=== PATIENT | female | born 1990 | race Caucasian/White ===

== ENCOUNTER 2018-04-06 16:08 | Emergency (ER) | payer OTHER ==
[~2018-04-06] VITALS: Ht 170.2 cm; Wt 81.7 kg
[2018-04-06 17:35] LABS: BASOPHILS ABSOLUTE AUTO 0.06 K/mm3 (0.00-0.23); BASOPHILS PERCENT AUTO 0 % (0-2); EOSINOPHILS ABSOLUTE AUTO 0.02 K/mm3 (0.00-0.68); EOSINOPHILS PERCENT AUTO 0 % (0-6); Hemoglobin 13.7 g/dL (11.5-16.0); IMMATURE GRAN ABSOLUTE AUTO 0.25 K/mm3 (0.00-0.10); IMMATURE GRAN PERCENT AUTO 1 % (0-1); LYMPHOCYTES ABSOLUTE AUTO 1.19 K/mm3 (0.84-5.20); LYMPHOCYTES PERCENT AUTO 5 % (21-46); MONOCYTES PERCENT AUTO 6 % (4-13); Mean Corpuscular HGB 31.7 pg (26.0-34.0); Mean Corpuscular HGB Conc 32.6 g/dL (31.5-36.5); Mean Corpuscular Volume 97 fL (80-100); Mean Platelet Volume 11.5 fL (9.1-12.4); NEUTROPHILS ABSOLUTE AUTO 20.69 K/mm3 (1.96-9.15); NEUTROPHILS PERCENT AUTO 87 % (41-73); Platelet Count 247 K/mm3 (150-400); RDW Coefficient Variation 12.8 % (11.7-14.2); RDW Standard Deviation 45.7 fL (35.1-46.3); Red Blood Cell Count 4.32 M/mm3 (3.80-5.20); White Blood Cell Count 23.71 K/mm3 (4.00-11.30)
[2018-04-06 17:42] LABS: Alanine Aminotransfer (ALT/SGP 50 U/L (12-78); Albumin, Blood 3.8 g/dL (3.4-5.0); Alk Phos 96 U/L (50-136); Anion Gap 20 mmol/L (6-16); Aspartate Aminotrans (AST/SGOT 68 U/L (12-37); Bilirubin, Total 0.5 mg/dL (0.1-1.0); Blood Urea Nitrogen 20 mg/dL (8-24); Bun/Creatinine Ratio 18.9 (12.0-20.0); CO2, Blood 21 mmol/L (21-32); Calcium, Blood 8.3 mg/dL (8.5-10.1); Chloride, Blood 96 mmol/L (98-108); Creatinine, Blood 1.06 mg/dL (0.40-1.00); Globulin, Blood 3.9 g/dL (2.2-4.0); Glomerular Filtration Rate >60 (60-); Glucose, Blood 215 mg/dL (70-99); Potassium, Blood 3.5 mmol/L (3.5-5.5); Sodium, Blood 137 mmol/L (136-145); Total Protein, Blood 7.7 g/dL (6.4-8.2)
[2018-04-06 18:06] LABS: U Amphetamine Screen Not Detected; U Barbituate Screen Not Detected; U Benzodiazapine Screen Not Detected; U Buprenorphine Screen Not Detected; U Cannabinoids Screen Not Detected; U Cocaine Screen Not Detected; U Methadone Screen Not Detected; U Methamphetamine Screen DETECTED; U Opiates Screen DETECTED; U Oxycodone Screen Not Detected; U Phencyclidine Screen Not Detected; U Propoxyphene Screen Not Detected
== END 2018-04-06 19:55 | disposition home or self-care (01) ==
LOC: ER 16:08
PROVIDERS: Emergency Medicine
DX: T40.1X1A Poisoning by heroin, accidental (unintentional), initial encounter (principal); F17.210 Nicotine dependence, cigarettes, uncomplicated
CPT/HCPCS: 71046; 80053; 85025; 93005; 93010; 96374; 99285-25; J2310

== ENCOUNTER → 2018-07-09 | Outpatient (CLI) | payer OTHER ==
[2018-07-16 15:06] LABS: CHLAMYDIA BY NAA Negative (Negative); GONOCOCCUS BY NAA Negative (Negative); TRICH VAG BY NAA Negative (Negative)
== END | disposition home or self-care (01) ==
LOC: LAB SHORT 15:54 → LAB 15:54
PROVIDERS: Obstetrics & Gynecology
DX: Z36.89 Encounter for other specified antenatal screening (principal)
CPT/HCPCS: 87491; 87591; 87624; 87625; 87661; G0123

== ENCOUNTER → 2018-08-07 | Outpatient (CLI) | payer OTHER | END | disposition home or self-care (01) | LOC: LAB 16:13 → LAB SHORT 16:13 | DX: F11.11 Opioid abuse, in remission (principal) | CPT/HCPCS: G0480 ==

== ENCOUNTER → 2018-09-04 | Outpatient (CLI) | payer OTHER ==
[2018-09-04 18:00] LABS: U Amphetamine Screen Not Detected; U Barbituate Screen Not Detected; U Benzodiazapine Screen Not Detected; U Cannabinoids Screen Not Detected; U Cocaine Screen Not Detected; U Methadone Screen Not Detected; U Methamphetamine Screen Not Detected; U Opiates Screen Not Detected; U Phencyclidine Screen Not Detected
[2018-09-04 18:01] LABS: U Buprenorphine Screen Not Detected; U Oxycodone Screen Not Detected; U Propoxyphene Screen Not Detected
== END ==
LOC: LAB 16:40 → LAB SHORT 16:40
PROVIDERS: Obstetrics & Gynecology
DX: Z34.00 Encounter for supervision of normal first pregnancy, unspecified trimester (principal); Z86.59 Personal history of other mental and behavioral disorders

== ENCOUNTER → 2018-11-13 | Outpatient (CLI) | payer OTHER ==
[2018-11-14 09:36] LABS: Candida species (DNA Probe) Positive (NEGATIVE); G. vaginalis (DNA Probe) Negative (NEGATIVE); T. vaginalis (DNA Probe) Negative (NEGATIVE)
== END | disposition home or self-care (01) ==
LOC: LAB 11:00 → LAB SHORT 11:00
PROVIDERS: Obstetrics & Gynecology
DX: N76.0 Acute vaginitis (principal)
CPT/HCPCS: 87480; 87510; 87660

== ENCOUNTER → 2018-12-24 | Outpatient (CLI) | payer OTHER | END | disposition home or self-care (01) | LOC: LAB 14:16 → LAB SHORT 14:16 | DX: Z34.00 Encounter for supervision of normal first pregnancy, unspecified trimester (principal) | CPT/HCPCS: 87081; 87653 ==

== ENCOUNTER 2019-01-12 20:09 | Inpatient (IN) | payer OTHER ==
[~2019-01-12] VITALS: Ht 170.2 cm; Wt 96.4 kg
[2019-01-12] MEDS ORDERED: Verotin-Gr Cap1 EACH (20:58)
[2019-01-12] MEDS ORDERED: SUBOXONE 4 MG-1 EACH SL (20:59)
[2019-01-12 21:06] LABS: BASOPHILS ABSOLUTE AUTO 0.02 K/mm3 (0.00-0.23); BASOPHILS PERCENT AUTO 0 % (0-2); EOSINOPHILS ABSOLUTE AUTO 0.21 K/mm3 (0.00-0.68); EOSINOPHILS PERCENT AUTO 2 % (0-6); Hematocrit 37.1 % (33.0-51.0); Hemoglobin 12.6 g/dL (11.5-16.0); IMMATURE GRAN ABSOLUTE AUTO 0.03 K/mm3 (0.00-0.10); IMMATURE GRAN PERCENT AUTO 0 % (0-1); LYMPHOCYTES ABSOLUTE AUTO 1.68 K/mm3 (0.84-5.20); LYMPHOCYTES PERCENT AUTO 18 % (21-46); MONOCYTES ABSOLUTE AUTO 0.99 K/mm3 (0.16-1.47); MONOCYTES PERCENT AUTO 11 % (4-13); Mean Corpuscular HGB 31.6 pg (26.0-34.0); Mean Corpuscular Volume 93 fL (80-100); Mean Platelet Volume 12.9 fL (9.1-12.4); NEUTROPHILS ABSOLUTE AUTO 6.44 K/mm3 (1.96-9.15); NEUTROPHILS PERCENT AUTO 69 % (41-73); Platelet Count 191 K/mm3 (150-400); RDW Coefficient Variation 13.4 % (11.7-14.2); RDW Standard Deviation 45.9 fL (35.1-46.3); Red Blood Cell Count 3.99 M/mm3 (3.80-5.20); White Blood Cell Count 9.37 K/mm3 (4.00-11.30)
[2019-01-12 21:18] LABS: U Amphetamine Screen Not Detected; U Barbituate Screen Not Detected; U Benzodiazapine Screen Not Detected; U Cannabinoids Screen Not Detected; U Cocaine Screen Not Detected; U Methadone Screen Not Detected; U Methamphetamine Screen Not Detected; U Opiates Screen Not Detected; U Oxycodone Screen Not Detected; U Phencyclidine Screen Not Detected; U Propoxyphene Screen Not Detected
[2019-01-12 21:19] LABS: U Buprenorphine Screen DETECTED
--- NOTE | 2019-01-13 18:40 | NUR ---
REPORT TO ONCOMING SHIFT
--- NOTE | 2019-01-14 12:47 | NUR ---
BRESTFEEDING ASSIST MOM REPORTS THAT BREASTFEEDIGN IS GOING WELL. BABY WIHT WIDE ASYMETRIC LATCH. NEW BEGINNINGS AND BOOK DISCUSSED. MOM HANDLES BABY VERY WELL.
[2019-01-14 13:24] LABS: Hemoglobin 11.9 g/dL (11.5-16.0); Mean Corpuscular HGB 31.6 pg (26.0-34.0); Mean Corpuscular Volume 93 fL (80-100); Mean Platelet Volume 12.9 fL (9.1-12.4); Platelet Count 156 K/mm3 (150-400); RDW Coefficient Variation 13.7 % (11.7-14.2); RDW Standard Deviation 46.4 fL (35.1-46.3); Red Blood Cell Count 3.77 M/mm3 (3.80-5.20); White Blood Cell Count 14.72 K/mm3 (4.00-11.30)
--- NOTE | 2019-01-14 22:24 | NUR ---
ASSUMED CARE FROM URI RIZVI AT 1535
[2019-01-15] MEDS ORDERED: IBUP800 PO (14:08)
--- NOTE | 2019-01-15 16:08 | NUR ---
SUBUTEX RETURNED TO PT FROM PHARMACY. VERIFITED WITH THE PATIENT, OSCAR GREWAL, AND MYSELF THAT THERE WERE 2.5 PILLS IN THE BOTTLE. ALL WITNESSES AGREED ON THE AMOUNT PRESENT.
--- NOTE | 2019-01-15 16:38 | NUR ---
PT PUT TO BOARDER. PT EDUCATED ON WHAT BOARDER STATUS AND REPORTED THAT SHE UNDERSTOOD. PRESCRIPTION CALLED IN TO [facility] FOR MOLD YARN SUPERVISOR. PT GIVEN MATERNAL DISCHARGE INSTRICTIONS. NO QUESTIONS OR CONCERNS AT THIS TIME.
== END 2019-01-15 16:38 | disposition home or self-care (01) | DRG 806 ==
LOC: BC 20:09
PROVIDERS: ADMIT Obstetrics & Gynecology
PROC: 3E0P7VZ Introduction of Hormone into Female Reproductive, Via Natural or Artificial Opening (ICD-10-PCS; 2019-01-12)
PROC: 10907ZC Drainage of Amniotic Fluid, Therapeutic from Products of Conception, Via Natural or Artificial Opening (ICD-10-PCS; 2019-01-13)
PROC: 10H07YZ Insertion of Other Device into Products of Conception, Via Natural or Artificial Opening (ICD-10-PCS; 2019-01-13)
PROC: 3E0R3BZ Introduction of Anesthetic Agent into Spinal Canal, Percutaneous Approach (ICD-10-PCS; 2019-01-13)
PROC: 10E0XZZ Delivery of Products of Conception, External Approach (ICD-10-PCS; principal; 2019-01-14)
PROC: 0UQG7ZZ Repair Vagina, Via Natural or Artificial Opening (ICD-10-PCS; 2019-01-14)
DX: O99.824 Streptococcus B carrier state complicating childbirth (principal); F11.20 Opioid dependence, uncomplicated; Z37.0 Single live birth; O99.324 Drug use complicating childbirth; Z3A.39 39 weeks gestation of pregnancy; O71.4 Obstetric high vaginal laceration alone
CPT/HCPCS: 36415; 51702; 85025; 85027; J0290; J1885; J2590; J3010; J7120

== ENCOUNTER 2019-03-09 15:12 | Emergency (ER) | payer OTHER ==
[~2019-03-09] VITALS: Ht 170.2 cm; Wt 83.9 kg
[~2019-03-09 15:12] MED LIST: IBUP800 PO; SUBOXONE 4 MG-1 EACH SL; Verotin-Gr Cap1 EACH
[2019-03-09 15:46] LABS: BASOPHILS ABSOLUTE AUTO 0.04 K/mm3 (0.00-0.23); BASOPHILS PERCENT AUTO 0 % (0-2); EOSINOPHILS PERCENT AUTO 2 % (0-6); Hematocrit 47.7 % (33.0-51.0); Hemoglobin 16.2 g/dL (11.5-16.0); IMMATURE GRAN ABSOLUTE AUTO 0.04 K/mm3 (0.00-0.10); IMMATURE GRAN PERCENT AUTO 0 % (0-1); LYMPHOCYTES ABSOLUTE AUTO 0.93 K/mm3 (0.84-5.20); LYMPHOCYTES PERCENT AUTO 10 % (21-46); MONOCYTES ABSOLUTE AUTO 0.43 K/mm3 (0.16-1.47); MONOCYTES PERCENT AUTO 5 % (4-13); Mean Corpuscular HGB 31.2 pg (26.0-34.0); Mean Corpuscular Volume 92 fL (80-100); Mean Platelet Volume 11.5 fL (9.1-12.4); NEUTROPHILS ABSOLUTE AUTO 7.48 K/mm3 (1.96-9.15); NEUTROPHILS PERCENT AUTO 82 % (41-73); Platelet Count 215 K/mm3 (150-400); RDW Coefficient Variation 13.4 % (11.7-14.2); RDW Standard Deviation 45.5 fL (35.1-46.3); White Blood Cell Count 9.12 K/mm3 (4.00-11.30)
[2019-03-09 16:03] LABS: Alanine Aminotransfer (ALT/SGP 42 U/L (12-78); Albumin, Blood 4.2 g/dL (3.4-5.0); Alk Phos 119 U/L (50-136); Anion Gap 9 mmol/L (6-16); Aspartate Aminotrans (AST/SGOT 21 U/L (12-37); Bilirubin, Total 0.6 mg/dL (0.1-1.0); Blood Urea Nitrogen 16 mg/dL (8-24); Bun/Creatinine Ratio 25.8 (12.0-20.0); CO2, Blood 23 mmol/L (21-32); Calcium, Blood 9.8 mg/dL (8.5-10.1); Chloride, Blood 110 mmol/L (98-108); Creatinine, Blood 0.62 mg/dL (0.40-1.00); Glomerular Filtration Rate >60 (60-); Glucose, Blood 93 mg/dL (70-99); Sodium, Blood 142 mmol/L (136-145); Total Protein, Blood 8.2 g/dL (6.4-8.2)
[2019-03-09 18:30] LABS: Source, Urine Clean Catch
[2019-03-09 18:35] LABS: Bilirubin, Urine Neg (Neg); Blood, Urine Neg (Neg); Glucose Qualitative, Urine Neg (Neg); Ketones, Urine Neg (Neg); Leukocyte Esterase, Urine 1+ (Neg); Nitrite, Urine Neg (Neg); Protein, Urine Neg (Neg); Urobilinogen, Urine NORM (Normal)
[2019-03-09 18:45] LABS: Appearance, Urine Hazy (Clear); Color, Urine Yellow (P-Yellow)
[2019-03-09 18:46] LABS: Red Blood Cells, Urine 0-2 /hpf (0-2)
[2019-03-09 18:47] LABS: Bacteria Mod /hpf; Mucus Light (0-Heavy); Squamous Epithelial Cells Mod /hpf (Few)
== END 2019-03-09 21:20 | disposition home or self-care (01) ==
LOC: ER 15:12
PROVIDERS: Physician Assistant
DX: R10.11 Right upper quadrant pain (principal); R19.7 Diarrhea, unspecified; Z91.030 Bee allergy status; F17.210 Nicotine dependence, cigarettes, uncomplicated
CPT/HCPCS: 74177; 76705; 80053; 81001; 81025; 83690; 85025; 87086; 96360-59; 99284-25; J7030; Q9967

== ENCOUNTER 2019-06-07 03:16 | Observation (INO) | payer OTHER ==
[~2019-06-07] VITALS: Ht 170.2 cm; Wt 87.9 kg
[2019-06-07 03:36] LABS: BASOPHILS ABSOLUTE AUTO 0.05 K/mm3 (0.00-0.23); BASOPHILS PERCENT AUTO 1 % (0-2); EOSINOPHILS ABSOLUTE AUTO 0.39 K/mm3 (0.00-0.68); EOSINOPHILS PERCENT AUTO 4 % (0-6); Hematocrit 43.2 % (33.0-51.0); Hemoglobin 14.2 g/dL (11.5-16.0); IMMATURE GRAN ABSOLUTE AUTO 0.05 K/mm3 (0.00-0.10); IMMATURE GRAN PERCENT AUTO 1 % (0-1); LYMPHOCYTES ABSOLUTE AUTO 4.34 K/mm3 (0.84-5.20); LYMPHOCYTES PERCENT AUTO 46 % (21-46); MONOCYTES ABSOLUTE AUTO 0.65 K/mm3 (0.16-1.47); MONOCYTES PERCENT AUTO 7 % (4-13); Mean Corpuscular HGB 32.1 pg (26.0-34.0); Mean Corpuscular HGB Conc 32.9 g/dL (31.5-36.5); Mean Corpuscular Volume 98 fL (80-100); Mean Platelet Volume 10.5 fL (9.1-12.4); NEUTROPHILS ABSOLUTE AUTO 3.94 K/mm3 (1.96-9.15); NEUTROPHILS PERCENT AUTO 42 % (41-73); Platelet Count 258 K/mm3 (150-400); RDW Coefficient Variation 14.5 % (11.7-14.2); RDW Standard Deviation 52.8 fL (35.1-46.3); Red Blood Cell Count 4.43 M/mm3 (3.80-5.20); White Blood Cell Count 9.42 K/mm3 (4.00-11.30)
[2019-06-07 04:00] LABS: Alanine Aminotransfer (ALT/SGP 19 U/L (12-78); Albumin, Blood 4.1 g/dL (3.4-5.0); Albumin/Globulin Ratio 1.3 (0.8-1.8); Alk Phos 96 U/L (50-136); Anion Gap 9 mmol/L (6-16); Aspartate Aminotrans (AST/SGOT 16 U/L (12-37); Bilirubin, Total 0.1 mg/dL (0.1-1.0); Blood Urea Nitrogen 14 mg/dL (8-24); Bun/Creatinine Ratio 22.5 (12.0-20.0); CO2, Blood 24 mmol/L (21-32); Calcium, Blood 8.1 mg/dL (8.5-10.1); Chloride, Blood 112 mmol/L (98-108); Creatinine, Blood 0.62 mg/dL (0.40-1.00); Ethanol (Alcohol), Blood, Med 168 mg/dL; Globulin, Blood 3.1 g/dL (2.2-4.0); Glomerular Filtration Rate >60 (60-); Glucose, Blood 98 mg/dL (70-99); Potassium, Blood 4.3 mmol/L (3.5-5.5); Salicylate 2.3 mg/dL (2.8-20.0); Sodium, Blood 145 mmol/L (136-145); Total Protein, Blood 7.2 g/dL (6.4-8.2)
[2019-06-07 04:03] LABS: Acetaminophen, Random 185.8 ug/mL (10.0-30.0)
[2019-06-07 06:02] LABS: Source, Urine Clean Catch
[2019-06-07 06:04] LABS: Bilirubin, Urine Neg (Neg); Blood, Urine Neg (Neg); Glucose Qualitative, Urine Neg (Neg); Ketones, Urine Neg (Neg); Leukocyte Esterase, Urine 1+ (Neg); Nitrite, Urine Neg (Neg); Protein, Urine Neg (Neg); Urobilinogen, Urine NORM (Normal)
[2019-06-07 06:11] LABS: Appearance, Urine Clear (Clear); Color, Urine Yellow (P-Yellow)
[2019-06-07 06:13] LABS: Bacteria Few /hpf; Red Blood Cells, Urine 0-2 /hpf (0-2); Squamous Epithelial Cells Many /hpf (Few)
[2019-06-07 06:22] LABS: U Amphetamine Screen Not Detected; U Barbituate Screen Not Detected; U Benzodiazapine Screen Not Detected; U Buprenorphine Screen Not Detected; U Cannabinoids Screen Not Detected; U Cocaine Screen Not Detected; U Methadone Screen Not Detected; U Methamphetamine Screen Not Detected; U Opiates Screen Not Detected; U Oxycodone Screen Not Detected; U Phencyclidine Screen Not Detected; U Propoxyphene Screen Not Detected
[2019-06-07 10:10] LABS: Alanine Aminotransfer (ALT/SGP 27 U/L (12-78); Albumin, Blood 3.4 g/dL (3.4-5.0); Albumin/Globulin Ratio 1.1 (0.8-1.8); Alk Phos 71 U/L (50-136); Anion Gap 12 mmol/L (6-16); Aspartate Aminotrans (AST/SGOT 11 U/L (12-37); Bilirubin, Total 0.2 mg/dL (0.1-1.0); Blood Urea Nitrogen 13 mg/dL (8-24); Bun/Creatinine Ratio 24.7 (12.0-20.0); CO2, Blood 22 mmol/L (21-32); Calcium, Blood 7.8 mg/dL (8.5-10.1); Chloride, Blood 111 mmol/L (98-108); Creatinine, Blood 0.53 mg/dL (0.40-1.00); Globulin, Blood 3.1 g/dL (2.2-4.0); Glomerular Filtration Rate >60 (60-); Glucose, Blood 126 mg/dL (70-99); Potassium, Blood 3.6 mmol/L (3.5-5.5); Sodium, Blood 145 mmol/L (136-145); Total Protein, Blood 6.5 g/dL (6.4-8.2)
[2019-06-07 16:13] LABS: Alanine Aminotransfer (ALT/SGP 24 U/L (12-78); Albumin, Blood 3.4 g/dL (3.4-5.0); Albumin/Globulin Ratio 1.1 (0.8-1.8); Alk Phos 70 U/L (50-136); Anion Gap 11 mmol/L (6-16); Aspartate Aminotrans (AST/SGOT 10 U/L (12-37); Bilirubin, Total 0.2 mg/dL (0.1-1.0); Blood Urea Nitrogen 13 mg/dL (8-24); Bun/Creatinine Ratio 19.5 (12.0-20.0); CO2, Blood 22 mmol/L (21-32); Calcium, Blood 7.6 mg/dL (8.5-10.1); Chloride, Blood 111 mmol/L (98-108); Creatinine, Blood 0.67 mg/dL (0.40-1.00); Globulin, Blood 3.2 g/dL (2.2-4.0); Glomerular Filtration Rate >60 (60-); Glucose, Blood 99 mg/dL (70-99); Potassium, Blood 3.5 mmol/L (3.5-5.5); Sodium, Blood 144 mmol/L (136-145); Total Protein, Blood 6.6 g/dL (6.4-8.2)
--- NOTE | 2019-06-07 16:46 | NUR ---
UPDATE SPOKE WITH CONSULTING PSYCHATRIST ABOUT HOLD. PT STILL REQUIRING 2 MD HOLD. PT CHANGED TO MODERATE RISK AND NO LONGER REQUIRES SITTER IN THE ROOM, CAMERA MONITORING IS SUFFICIENT. DR. JONES AWARE. WILL CONTINUE TO MONITOR CLOSELY.
--- NOTE | 2019-06-07 17:35 | NUR ---
SHIFT SUMMARY PT ALERT AND ORIENTED. VS STABLE. HR NSR. PT WAS NAUSEOUS AND VOMITING THIS AM, BUT HAS NOT SINCE NOON. NAC INFUSING PER ORDERS. NO SIGNS OR SYMPTOMS OF BLEEDING NOTED. PT DENIES ANY PAIN. SUICIDE PRECAUTIONS IN PLACE. PT BEING MONITORED WITH CAMERA IN ROOM. WILL CONTINUE TO MONITOR AND REPORT TO ONCOMING RN. CALL LIGHT IN REACH.
[2019-06-07 21:58] LABS: Alanine Aminotransfer (ALT/SGP 20 U/L (12-78); Albumin, Blood 3.1 g/dL (3.4-5.0); Alk Phos 64 U/L (50-136); Anion Gap 8 mmol/L (6-16); Aspartate Aminotrans (AST/SGOT 14 U/L (12-37); Bilirubin, Total 0.4 mg/dL (0.1-1.0); Blood Urea Nitrogen 12 mg/dL (8-24); Bun/Creatinine Ratio 18.5 (12.0-20.0); CO2, Blood 24 mmol/L (21-32); Calcium, Blood 7.7 mg/dL (8.5-10.1); Chloride, Blood 112 mmol/L (98-108); Creatinine, Blood 0.65 mg/dL (0.40-1.00); Glomerular Filtration Rate >60 (60-); Glucose, Blood 99 mg/dL (70-99); Potassium, Blood 3.3 mmol/L (3.5-5.5); Sodium, Blood 144 mmol/L (136-145); Total Protein, Blood 6.1 g/dL (6.4-8.2)
--- NOTE | 2019-06-08 03:49 | NUR ---
poison control called for lab results, acetaminnophen was 3.5, along with other labs they said to stop the acetyleyseine when the bag was empty, wrote orders to dc along those lines and implemented them, pt is resting quietly and appreciated the removeal of the IV lines to make trips to bathroom less cumbersom/complicated, will continue to monitor and treat
[2019-06-08 03:57] LABS: BASOPHILS ABSOLUTE AUTO 0.04 K/mm3 (0.00-0.23); BASOPHILS PERCENT AUTO 0 % (0-2); EOSINOPHILS ABSOLUTE AUTO 0.11 K/mm3 (0.00-0.68); EOSINOPHILS PERCENT AUTO 1 % (0-6); Hematocrit 37.9 % (33.0-51.0); Hemoglobin 12.4 g/dL (11.5-16.0); IMMATURE GRAN ABSOLUTE AUTO 0.03 K/mm3 (0.00-0.10); IMMATURE GRAN PERCENT AUTO 0 % (0-1); LYMPHOCYTES ABSOLUTE AUTO 2.71 K/mm3 (0.84-5.20); LYMPHOCYTES PERCENT AUTO 25 % (21-46); MONOCYTES PERCENT AUTO 7 % (4-13); Mean Corpuscular HGB 32.3 pg (26.0-34.0); Mean Corpuscular HGB Conc 32.7 g/dL (31.5-36.5); Mean Corpuscular Volume 99 fL (80-100); Mean Platelet Volume 10.9 fL (9.1-12.4); NEUTROPHILS ABSOLUTE AUTO 7.14 K/mm3 (1.96-9.15); NEUTROPHILS PERCENT AUTO 66 % (41-73); Platelet Count 205 K/mm3 (150-400); RDW Coefficient Variation 14.6 % (11.7-14.2); RDW Standard Deviation 53.3 fL (35.1-46.3); Red Blood Cell Count 3.84 M/mm3 (3.80-5.20); White Blood Cell Count 10.83 K/mm3 (4.00-11.30)
[2019-06-08 04:20] LABS: Alanine Aminotransfer (ALT/SGP 21 U/L (12-78); Albumin/Globulin Ratio 1.1 (0.8-1.8); Alk Phos 61 U/L (50-136); Anion Gap 7 mmol/L (6-16); Aspartate Aminotrans (AST/SGOT 14 U/L (12-37); Bilirubin, Total 0.6 mg/dL (0.1-1.0); Blood Urea Nitrogen 9 mg/dL (8-24); Bun/Creatinine Ratio 15.7 (12.0-20.0); CO2, Blood 23 mmol/L (21-32); Calcium, Blood 7.8 mg/dL (8.5-10.1); Chloride, Blood 111 mmol/L (98-108); Creatinine, Blood 0.57 mg/dL (0.40-1.00); Globulin, Blood 2.8 g/dL (2.2-4.0); Glomerular Filtration Rate >60 (60-); Glucose, Blood 94 mg/dL (70-99); Potassium, Blood 3.2 mmol/L (3.5-5.5); Sodium, Blood 141 mmol/L (136-145); Total Protein, Blood 5.8 g/dL (6.4-8.2)
--- NOTE | 2019-06-08 07:15 | NUR ---
denies suicide ideation, indpedent in rm as far as stability but sba within arms length due to suicide, rm air, saline locked, cleared by poison control as far as need for drip, bs report shared with staff and pt during monring rounds
--- NOTE | 2019-06-08 08:30 | NUR ---
INITIAL ASSSESSMENT PT WAS FOUND TO BE BED EATING BREAKFAST. UPON ASSESSMENT, PT DENIES ANY SI AND STATES, "I HAVEN'T HAD ANY I WAS SLEEPING". PT'S ROOM CHECKED FOR ANY ADDITIONAL ITEMS THAT WERE NO LONGER IN USE AND COULD BE REMOVED. VITALS STABLE.
--- NOTE | 2019-06-08 15:45 | NUR ---
TRANSFER OF CARE REPORT GIVEN TO TYRON GREWAL ON MEDICAL FLOOR. UPDATED RN ON PT'S STATUS FOR SEARCH FOR INPATIENT PYSCH CARE. NO FAMILY HAS SHOWN UP TODAY. BELONGINGS GATHERED OUT OF LOCKED CLOSET AND SENT WITH TECH TO PT'S NEW ROOM. PT WAS ESCORTED BY JUANPABLO BENJAMIN VIA W/C TO ROOM 345. CENTRAL MONITORING NOTIFIED OF PT TRANSER.
--- NOTE | 2019-06-08 16:53 | NUR ---
1613 PT ARRIVED TO MEDICAL FLOOR FROM PCU. CAMERA VERIFIED TO BE ON. ROOM SAFETY CHECK COMPLETED, UNNESSARY AND POTENTIALLY DANGEROUS ITEMS REOMVED PER POLICY, SEE PAPER DOCUMENTATION. VSS PT WITH FLAT AFFECT. PT DENIES NEEDS.
--- NOTE | 2019-06-08 18:12 | NUR ---
SHIFT SUMMARY. PT A&OX4, PLEASANT AND COOPERATIVE, FLAT AFFECT. GRANDMOTHER, IRINA ZAMARRIPA IN TO VISIT THIS EVENING, ANGELINE VALLADARES NP NOTIFIED AND SHE REPORTED THAT SHE WILL CALL THE IRINA IN THE MORNING. CN NOTIFIED THIS RN THAT JANETT GUTIERREZ HAS ACCEPTED THE PT AND WE ARE WAITING ON A BED. NO NEW CHANGES OR CONCERNS.
--- NOTE | 2019-06-08 20:31 | NUR ---
PT CURRENTLY LAYING IN BED AND WATCHING TV. DENIES PAIN OTHER THAN PAIN IN THROAT FROM THROWING UP PREVIOUSLY. WILL CONTINUE TO MONITOR.
--- NOTE | 2019-06-08 22:43 | NUR ---
PT COMPLAINED OF HEADACHE 01/28. PT STATES SHE IS DAILY SMOKER, SMOKES 1 AND A PACK A DAY AND HAS NOT SMOKED SINCE SHE GOT ON THE FLOOR. PT ALSO STATES SHE IS A DAILY CAFFINE DRINKER AND HAS NOT HAD CAFFINE SINCE ON THE FLOOR. CAFFINE HAS BEEN OFFERED TO PT. HOSPITALIST DR. LONDON SAMUEL NOTIFIED AND NICOTINE PATCH 21 MG ORDERED. PT STATED SHE WILL TRY NICOTINE PATCH.
--- NOTE | 2019-06-09 02:52 | NUR ---
PT STATED IV IN RIGHT ARM ITCHY. NO REDNESS NOTED. PT ALSO HAS ANOTHER IV IN LEFT ARM, FLUSHES NICELY WITH NO DISCOMFORT OR REDNESS. PT MADE AWARE THAT ONE OF THE IVS NEEDS TO STAY IN IN CASE OF EMERGENCIES.
--- NOTE | 2019-06-09 04:15 | NUR ---
MANAGER VIDEO GAMES SUMMARY PT A/O X4. NO ACUTE CHANGES THIS SHIFT. FLAT AFFECT. PT STATED SHE HAS SLEPT ALL DAY FOR THE PAST 2 DAYS, WASN'T TIRED AND DID NOT SLEEP MUCH TONIGHT. HEADACHE RE-ASSESSED AFTER NICOTINE PATCH APPLIED TO LEFT UPPER ARM. PT STATED PAIN HAS COME DOWN. WILL CONTINUE TO MONITOR.
[2019-06-09 05:21] LABS: Anion Gap 6 mmol/L (6-16); Blood Urea Nitrogen 9 mg/dL (8-24); Bun/Creatinine Ratio 16.8 (12.0-20.0); CO2, Blood 26 mmol/L (21-32); Calcium, Blood 8.3 mg/dL (8.5-10.1); Chloride, Blood 110 mmol/L (98-108); Creatinine, Blood 0.54 mg/dL (0.40-1.00); Glomerular Filtration Rate >60 (60-); Glucose, Blood 86 mg/dL (70-99); Potassium, Blood 3.6 mmol/L (3.5-5.5); Sodium, Blood 142 mmol/L (136-145)
--- NOTE | 2019-06-09 08:20 | NUR ---
PATIENT DID NOT EAT BREAKFAST THIS SHIFT. SHE STATED SHE DID NOT WANT IT. SHE STATED SHE WAS UP UNTIL 0500 AND WANTED TO SLEEP. I OFFERED TO LEAVE THE THE TRAY AND SHE DECLINED. TRAY WAS REMOVED AND RN WAS NOTIFIED.
--- NOTE | 2019-06-09 12:20 | NUR ---
PATIENT DID NOT EAT LUNCH THIS SHIFT. FAMILY PRESENT AND VISITNG. TRAY REMOVED.
--- NOTE | 2019-06-09 14:01 | NUR ---
COBRA TRANSFER PATIENT TRANSFERED TO [facility] VIA SECURE TRANSPORT. REPORT CALLED TO SHITAL AT [facility]. PATIENT'S BOYFRIEND AND GRANDMOTHER AWARE OF TRANSFER AND VISTED PATIENT BEFORE TRANSFER.
== END 2019-06-09 14:00 | disposition short-term general hospital (02) ==
LOC: ER 03:16 → EOR 03:17 → PCU 03:17 → EOR 03:17 → PCU 06:18 → MEDS 06-08 16:13 → ENPENDDIS 06-09 11:09 → MEDS 06-09 14:00
PROVIDERS: Hospitalist; ADMIT Emergency Medicine
DX: T39.312A Poisoning by propionic acid derivatives, intentional self-harm, initial encounter (principal); T39.1X2A Poisoning by 4-Aminophenol derivatives, intentional self-harm, initial encounter; F33.2 Major depressive disorder, recurrent severe without psychotic features; E87.6 Hypokalemia; F41.9 Anxiety disorder, unspecified; F11.20 Opioid dependence, uncomplicated; F10.129 Alcohol abuse with intoxication, unspecified; F17.210 Nicotine dependence, cigarettes, uncomplicated; Z91.038 Other insect allergy status; Z79.899 Other long term (current) drug therapy; Y90.6 Blood alcohol level of 120-199 mg/100 ml
CPT/HCPCS: 36415; 80048; 80053; 81001; 81025; 85025; 86850; 86900; 86901; 87086; 93005; 93010; 96361; 96365; 96366; 96375; 96376; 99285-25; G0378; G0480; J0132; J2405; J2550; J7030; J7060; J7070; J7120; Q0177

== ENCOUNTER → 2022-11-05 | Outpatient (CLI) | payer OTHER | END | disposition home or self-care (01) | LOC: LAB 11:27 → LAB SHORT 11:27 | DX: N10 Acute pyelonephritis (principal) | CPT/HCPCS: 87077; 87086; 87186 ==

== ENCOUNTER 2023-04-04 09:28 | Emergency (ER) | payer OTHER ==
[~2023-04-04] VITALS: Ht 167.6 cm; Wt 74.8 kg
[2023-04-04 09:53] VITALS: BP 135/87
[2023-04-04 10:09] LABS: Source, Urine Clean Catch
[2023-04-04 10:16] LABS: Appearance, Urine Cloudy (Clear); Bilirubin, Urine Neg (Neg); Blood, Urine 1+ (Neg); Color, Urine Yellow (P-Yellow); Glucose Qualitative, Urine Neg (Neg); Ketones, Urine Neg (Neg); Leukocyte Esterase, Urine 3+ (Neg); Nitrite, Urine Neg (Neg); Protein, Urine 2+ (Neg); Urobilinogen, Urine 1+ (Normal)
[2023-04-04 10:27] LABS: White Blood Cells, Urine 50-100 /hpf (0-5)
[2023-04-04 10:30] LABS: Bacteria Many /hpf; Squamous Epithelial Cells Many /hpf (Few)
[2023-04-04 10:32] LABS: Mucus Mod (0-Heavy)
== END 2023-04-04 11:23 | disposition home or self-care (01) ==
LOC: ER 09:28
PROVIDERS: Physician Assistant
DX: O20.0 Threatened abortion (principal); O99.331 Smoking (tobacco) complicating pregnancy, first trimester; F17.210 Nicotine dependence, cigarettes, uncomplicated; Z3A.01 Less than 8 weeks gestation of pregnancy
CPT/HCPCS: 36415; 76801; 76817; 81001; 84702; 87077; 87086; 87186; 99284-25

== ENCOUNTER → 2023-05-09 | Outpatient (CLI) | payer OTHER ==
[2023-05-13 14:09] LABS: HPV 16 Negative (Negative); HPV 18 Negative (Negative); HPV OTHER HR TYPES Positive (Negative)
== END | disposition home or self-care (01) ==
LOC: LAB 13:17 → LAB SHORT 13:17
PROVIDERS: Obstetrics & Gynecology
DX: Z01.419 Encounter for gynecological examination (general) (routine) without abnormal findings (principal)
CPT/HCPCS: 87624; G0145

== ENCOUNTER → 2023-06-05 | Outpatient (CLI) | payer OTHER ==
[2023-06-05 15:11] LABS: Source, Urine Clean Catch
[2023-06-05 17:00] LABS: Appearance, Urine Cloudy (Clear); Bilirubin, Urine Neg (Neg); Blood, Urine Neg (Neg); Glucose Qualitative, Urine Neg (Neg); Ketones, Urine Neg (Neg); Leukocyte Esterase, Urine 2+ (Neg); Nitrite, Urine Neg (Neg); Protein, Urine Neg (Neg); Urobilinogen, Urine NORM (Normal)
[2023-06-05 17:13] LABS: Color, Urine Pale Yellow (P-Yellow)
[2023-06-05 17:15] LABS: Amorphous Light (0-Heavy); Bacteria Many /hpf; Red Blood Cells, Urine Not Seen /hpf (0-2); Squamous Epithelial Cells Many /hpf (Few)
== END ==
LOC: LAB 15:08 → LAB SHORT 15:08
PROVIDERS: Obstetrics & Gynecology
DX: N39.0 Urinary tract infection, site not specified (principal)
CPT/HCPCS: 81001; 87077; 87086; 87186

== ENCOUNTER 2023-06-10 12:58 | Emergency (ER) | payer OTHER ==
[~2023-06-10] VITALS: Ht 167.6 cm; Wt 86.2 kg
[2023-06-10 14:19] LABS: Source, Urine Clean Catch
[2023-06-10 14:21] LABS: Appearance, Urine Cloudy (Clear); Bilirubin, Urine Neg (Neg); Blood, Urine 5+ (Neg); Color, Urine Yellow (P-Yellow); Glucose Qualitative, Urine Neg (Neg); Ketones, Urine Neg (Neg); Leukocyte Esterase, Urine 2+ (Neg); Nitrite, Urine Neg (Neg); Protein, Urine Neg (Neg); Urobilinogen, Urine NORM (Normal)
[2023-06-10 14:22] LABS: BASOPHILS ABSOLUTE AUTO 0.02 K/mm3 (0.00-0.23); BASOPHILS PERCENT AUTO 0 % (0-2); EOSINOPHILS ABSOLUTE AUTO 0.13 K/mm3 (0.00-0.68); EOSINOPHILS PERCENT AUTO 2 % (0-6); Hematocrit 37.9 % (33.0-51.0); Hemoglobin 13.2 g/dL (11.5-16.0); IMMATURE GRAN ABSOLUTE AUTO 0.02 K/mm3 (0.00-0.10); IMMATURE GRAN PERCENT AUTO 0 % (0-1); LYMPHOCYTES ABSOLUTE AUTO 2.13 K/mm3 (0.84-5.20); LYMPHOCYTES PERCENT AUTO 27 % (21-46); MONOCYTES ABSOLUTE AUTO 0.49 K/mm3 (0.16-1.47); MONOCYTES PERCENT AUTO 6 % (4-13); Mean Corpuscular HGB 31.9 pg (26.0-34.0); Mean Corpuscular HGB Conc 34.8 g/dL (31.5-36.5); Mean Corpuscular Volume 92 fL (80-100); Mean Platelet Volume 11.4 fL (9.1-12.4); NEUTROPHILS ABSOLUTE AUTO 5.08 K/mm3 (1.96-9.15); NEUTROPHILS PERCENT AUTO 64 % (41-73); Platelet Count 195 K/mm3 (150-400); RDW Coefficient Variation 12.4 % (11.7-14.2); RDW Standard Deviation 41.4 fL (35.1-46.3); Red Blood Cell Count 4.14 M/mm3 (3.80-5.20); White Blood Cell Count 7.87 K/mm3 (4.00-11.30)
[2023-06-10 14:32] LABS: Red Blood Cells, Urine 50-100 /hpf (0-2); Squamous Epithelial Cells Many /hpf (Few)
[2023-06-10 14:33] LABS: Bacteria Mod /hpf; Transitional Epithelial Cells Rare /hpf (0-Rare)
[2023-06-10 15:23] LABS: Albumin, Blood 2.9 g/dL (3.4-5.0); Albumin/Globulin Ratio 0.7 (0.8-1.8); Bilirubin, Total 0.1 mg/dL (0.1-1.0); Bun/Creatinine Ratio 11.2 (12.0-20.0); Calcium, Blood 8.6 mg/dL (8.5-10.1); Creatinine, Blood 0.72 mg/dL (0.40-1.00); Globulin, Blood 4.3 g/dL (2.2-4.0); Potassium, Blood 3.9 mmol/L (3.5-5.5); Total Protein, Blood 7.2 g/dL (6.4-8.2)
[2023-06-10 16:02] VITALS: BP 125/78
== END 2023-06-10 16:03 | disposition home or self-care (01) ==
LOC: ER 12:58
PROVIDERS: Student in an Organized Health Care Education/Training Program
DX: O20.9 Hemorrhage in early pregnancy, unspecified (principal); O99.332 Smoking (tobacco) complicating pregnancy, second trimester; F17.210 Nicotine dependence, cigarettes, uncomplicated; Z3A.15 15 weeks gestation of pregnancy; Z91.030 Bee allergy status
CPT/HCPCS: 76815; 76817; 80053; 81001; 84702; 85025; 86900; 86901; 87086; 99284-25

== ENCOUNTER 2023-11-13 16:32 | Inpatient (IN) | payer OTHER ==
[~2023-11-13] VITALS: Ht 167.6 cm; Wt 88.1 kg
[2023-11-13] VITALS (30 sets, daily range): BP systolic 116–166; BP diastolic 71–103
--- NOTE | 2023-11-13 17:44 | NUR ---
PATIENT IN BY AMBULANCE AT 1632 FOR BLEEDING, SCANT BLEEDING ON LEGS, PATIENT ANXIOUS AND IRRITABLE STATES HAS NOT HAD CARE SINCE MAY, STATES SHE HAS HYSTORY OF USING METH AND FENTANYL, STATES SHE HAS ONLY BEEN USING METHADONE, STATES SHE GETS IT OVER THE PHONE, WHEN UP FOR DRUG SCREEN MORE BLOOD CAME DOWN LEG, STATES SHE IS FEELING BABY MOVING, DR NASH WAS UPDATED SEE NEW ORDERS, U/S HERE AT 1730 FOR U/S, B/P ELEVATED, DR NASH AWARE, LABS DRAWN LAST B/P 135/, IV ATTEMPTED, UNABLE TO GET ICU WAS CALLED FOR U/S GUIDED IV, SEVERAL TRACK ADAME ON BODY, PATIENT DENIES USING IV DRUGS TODAY
[2023-11-13] MEDS ORDERED: Lactated Ringer's 1,000 ML IV ONE (18:25)
[2023-11-13] MEDS ORDERED: Lactated Ringer's 500 ML IV ONE (18:35)
--- NOTE | 2023-11-13 18:41 | NUR ---
UP TO BATHROOM SOME BLOOD IN TOILET 15 GMS BLOOD ON PAD
[2023-11-13] MEDS ORDERED: BUPRENORPHN-NA1 EACH (18:58)
[2023-11-13 19:07] LABS: U Amphetamine Screen DETECTED; U Barbituate Screen Not Detected; U Benzodiazapine Screen Not Detected; U Buprenorphine Screen DETECTED; U Cannabinoids Screen Not Detected; U Cocaine Screen Not Detected; U Methadone Screen Not Detected; U Methamphetamine Screen DETECTED; U Opiates Screen Not Detected; U Oxycodone Screen Not Detected; U Phencyclidine Screen Not Detected
[2023-11-13 19:08] LABS: BASOPHILS ABSOLUTE AUTO 0.04 K/mm3 (0.00-0.23); BASOPHILS PERCENT AUTO 0 % (0-2); EOSINOPHILS ABSOLUTE AUTO 0.13 K/mm3 (0.00-0.68); EOSINOPHILS PERCENT AUTO 1 % (0-6); Hemoglobin 11.9 g/dL (11.5-16.0); IMMATURE GRAN ABSOLUTE AUTO 0.07 K/mm3 (0.00-0.10); IMMATURE GRAN PERCENT AUTO 1 % (0-1); LYMPHOCYTES ABSOLUTE AUTO 2.32 K/mm3 (0.84-5.20); LYMPHOCYTES PERCENT AUTO 17 % (21-46); MONOCYTES ABSOLUTE AUTO 0.88 K/mm3 (0.16-1.47); MONOCYTES PERCENT AUTO 6 % (4-13); Mean Corpuscular HGB 29.9 pg (26.0-34.0); Mean Corpuscular HGB Conc 33.1 g/dL (31.5-36.5); Mean Corpuscular Volume 91 fL (80-100); Mean Platelet Volume 12.3 fL (9.1-12.4); NEUTROPHILS ABSOLUTE AUTO 10.58 K/mm3 (1.96-9.15); NEUTROPHILS PERCENT AUTO 76 % (41-73); Platelet Count 197 K/mm3 (150-400); RDW Coefficient Variation 12.7 % (11.7-14.2); RDW Standard Deviation 41.7 fL (35.1-46.3); Red Blood Cell Count 3.98 M/mm3 (3.80-5.20); White Blood Cell Count 14.02 K/mm3 (4.00-11.30)
[2023-11-13] MEDS ORDERED: Lactated Ringer's 1,000 ML IV SCH ×3 (19:10→20:50)
[2023-11-13] MEDS ORDERED: CeFAZolin Sodium 2,000 MG in NS 100 ML IV SCH (19:10)
[2023-11-13] MEDS ORDERED: Citric Acid/Sodium Citrate 30 ML BTL PO ONE (19:15)
[2023-11-13] MEDS ORDERED: Metoclopramide HCl 5MG / ML 2ML Vial IV ONE (19:25)
[2023-11-13] MEDS ORDERED: Phenylephrine HCl 100 MCG/ML-NS 10MLSYR (1MG/10ML) ONE (19:32)
[2023-11-13 19:46] LABS: Albumin, Blood 2.5 g/dL (3.4-5.0); Albumin/Globulin Ratio 0.6 (0.8-1.8); Bilirubin, Total 0.2 mg/dL (0.1-1.0); Bun/Creatinine Ratio 15.7 (12.0-20.0); Calcium, Blood 8.7 mg/dL (8.5-10.1); Creatinine, Blood 0.64 mg/dL (0.40-1.00); Globulin, Blood 4.5 g/dL (2.2-4.0); Potassium, Blood 4.3 mmol/L (3.5-5.5)
[2023-11-13] MEDS ORDERED: Ketorolac Tromethamine 30mg Vial ONE (20:01)
[2023-11-13] MEDS ORDERED: Oxytocin 10 Unit / ML Vial ONE (20:01)
[2023-11-13] MEDS ORDERED: Ketamine HCl 100 MG / ML 5ML Vial ONE (20:07)
[2023-11-13] MEDS ORDERED: Labetalol HCL 5 MG/ML 4ML Injection (Single Dose) ONE (20:13)
--- NOTE | 2023-11-13 20:14 | NUR ---
11/13/232013 Paulette Elizabeth AT 1958
[2023-11-13] MEDS ORDERED: Metoclopramide HCl 5MG / ML 2ML Vial IV PRN (20:20)
[2023-11-13] MEDS ORDERED: Ondansetron HCl 2 MG / ML 2ML Vial IV PRN ×2 (20:25→20:55)
[2023-11-13] MEDS ORDERED: Ketorolac Tromethamine 30mg Vial IV PRN (20:30)
[2023-11-13] MEDS ORDERED: Simethicone 80 MG Chew PO PRN (20:45)
[2023-11-13] MEDS ORDERED: LR Oxytocin 20 Units 1,000 ML IV SCH (20:50)
[2023-11-13] MEDS ORDERED: DiphenhydrAMINE HCL 25 MG Cap PO PRN (20:50)
[2023-11-13] MEDS ORDERED: Promethazine HCl 25 MG Tab PO PRN (20:50)
[2023-11-13] MEDS ORDERED: Morphine Sulfate 4 MG/1 ML Injection IV PRN (20:50)
[2023-11-13] MEDS ORDERED: Carboprost Tromethamine 250 MCG/ML 1ML Amp IM PRN (20:55)
[2023-11-13] MEDS ORDERED: OxyCODONE HCL 5 MG TAB PO PRN ×2 (20:55→23:40)
[2023-11-13] MEDS ORDERED: Methylergonovine Maleate 0.2 MG Tab PO PRN (20:55)
[2023-11-13] MEDS ORDERED: Acetaminophen 500 MG Tab PO PRN (20:55)
[2023-11-13] MEDS ORDERED: Magnesium Hydroxide Conc 10 ML UDC PO PRN (20:55)
[2023-11-13] MEDS ORDERED: Ketorolac Tromethamine 30mg Vial IV SCH (21:00)
[2023-11-13] MEDS ORDERED: Lanolin Cream TOP PRN (21:00)
[2023-11-13] MEDS ORDERED: buprenorphine HCL 2 MG TAB.SUBL SL SCH (21:00)
[2023-11-13] MEDS ORDERED: Docusate Sodium 100 MG Cap PO SCH (21:00)
[2023-11-13] MEDS ORDERED: Misoprostol 200 MCG Tab PR PRN (21:00)
[2023-11-13] MEDS ORDERED: Metoclopramide HCl 10 MG Tab PO PRN (21:00)
[2023-11-13] MEDS ORDERED: HYDROmorphone HCl/Pf 1MG SYR IV PRN (23:40)
[2023-11-14] VITALS (7 sets, daily range): BP systolic 117–141; BP diastolic 68–91
[2023-11-14] MEDS ORDERED: Ibuprofen 400 MG Tab PO SCH
[2023-11-14] MEDS ORDERED: Prenatal Vit/FE Fumarate/FA 1 Tab PO SCH (09:00)
--- NOTE | 2023-11-14 15:06 | NUR ---
REPT TO Hector MENESES RN
--- NOTE | 2023-11-14 18:49 | NUR ---
PT SET UP WITH PUMP WHILE NB IS IN NRSY, PER PT REQUEST. SHE HAS HERS AT HOME.
--- NOTE | 2023-11-14 20:07 | NUR ---
PATIENT NOT IN ROOM FOR BEDSIDE REPORT AT 191. RETURNED TO ROOM AT 192 STATING SHE HAD TAKEN COLOSTRUM TO THE NURSERY. PATIENT AMBULATING WELL IN HALLWAY. PATIENT LEFT ROOM IN WHEELCHAIR WITH PARTNER AT 1933 TO GO OUTSIDE AND HAS NOT RETURNED AT TIME OF THIS NOTE.
[2023-11-15 00:15] VITALS: BP 137/78
[2023-11-15 04:27] VITALS: BP 123/78
[2023-11-15 08:49] VITALS: BP 131/77
[2023-11-15 11:41] VITALS: BP 140/88
[2023-11-15] MEDS ORDERED: OXYC5 PO (13:44)
[2023-11-15] MEDS ORDERED: IBUP800 PO (13:44)
[2023-11-15] MEDS ORDERED: DOCU100 PO (13:45)
[2023-11-15] MEDS ORDERED: BUPRENORPHINE HC2 MG PO (13:46)
--- NOTE | 2023-11-15 14:06 | NUR ---
PREPARING PT TO DISCHARGE TO BOADER STATUS, FB BOARDER STATUS FLYER GIVEN ALONG WITH WRITTEN POST C/SECTION- INSTRUCTIONS TO REVIEW
--- NOTE | 2023-11-15 14:29 | NUR ---
PRESCRIPTIONS DELIVERED BY [facility], REVIEWED DISCHARGE INSTRUCTION WHILE PT DOWN IN NSY BREAST FEEDING NB, PT VERBALIZED UNDERSTANDING BOARDER STATUS, AND ALL INSTRUCTIONS, DISCHARGE MEDICATION SHEET REVIEWED WHEN SHE CAN TAKE HER OWN MEDICATION, DISCUSSED PP F/U APPT DATE AND TIME WITH PJ ON MON, BREAST FEEDING BOOKLET GIVEN ALONG WITH FORMULA FEEDING BOOKLET.
--- NOTE | 2023-11-15 14:51 | NUR ---
pt back to room, medications given that were dropped off by [facility], Pt ready to go to Boarder Status now
== END 2023-11-15 14:50 | disposition home or self-care (01) | DRG 786 ==
LOC: OBS 16:32 → BC 16:34 → OBS 18:28 → BC 18:30
PROVIDERS: ADMIT Obstetrics & Gynecology
PROC: 10D00Z1 Extraction of Products of Conception, Low, Open Approach (ICD-10-PCS; principal; 2023-11-13 23:45)
DX: O76 Abnormality in fetal heart rate and rhythm complicating labor and delivery (principal); O45.93 Premature separation of placenta, unspecified, third trimester; O99.324 Drug use complicating childbirth; F11.20 Opioid dependence, uncomplicated; F15.90 Other stimulant use, unspecified, uncomplicated; Z37.0 Single live birth; Z3A.37 37 weeks gestation of pregnancy; O99.334 Smoking (tobacco) complicating childbirth; F17.210 Nicotine dependence, cigarettes, uncomplicated; O99.344 Other mental disorders complicating childbirth; F41.9 Anxiety disorder, unspecified; F32.A Depression, unspecified; O99.62 Diseases of the digestive system complicating childbirth; K08.89 Other specified disorders of teeth and supporting structures; Z91.51 Personal history of suicidal behavior; Z71.6 Tobacco abuse counseling
CPT/HCPCS: 51702; 76805; 80053; 85025; 86850; 86900; 86901; 86923; A9270; J0690; J1885; J2270; J2371; J2590; J7120

== ENCOUNTER 2024-04-07 20:39 | Emergency (ER) | payer OTHER ==
[~2024-04-07] VITALS: Ht 167.6 cm; Wt 83.9 kg
[~2024-04-07 20:39] MED LIST changes: +BUPRENORPHINE HC2 MG PO; +BUPRENORPHN-NA1 EACH; +DOCU100 PO; +OXYC5 PO
[2024-04-07 20:45] VITALS: BP 144/95
[2024-04-07] MEDS ORDERED: Ketorolac Tromethamine 15mg Vial IV ONE (21:00)
[2024-04-07] MEDS ORDERED: MethylPREDNISolone Sod Succ 125 MG Vial IV ONE (21:00)
[2024-04-07] MEDS ORDERED: Famotidine 10 MG/ML 2ML Vial IV ONE (21:00)
[2024-04-07] MEDS ORDERED: Famotidine 20 MG Tab PO ONE (22:00)
[2024-04-07 22:04] LABS: BASOPHILS ABSOLUTE AUTO 0.02 K/mm3 (0.00-0.23); BASOPHILS PERCENT AUTO 0 % (0-2); EOSINOPHILS ABSOLUTE AUTO 0.19 K/mm3 (0.00-0.68); EOSINOPHILS PERCENT AUTO 3 % (0-6); Hematocrit 37.1 % (33.0-51.0); Hemoglobin 11.9 g/dL (11.5-16.0); IMMATURE GRAN ABSOLUTE AUTO 0.02 K/mm3 (0.00-0.10); IMMATURE GRAN PERCENT AUTO 0 % (0-1); LYMPHOCYTES ABSOLUTE AUTO 1.92 K/mm3 (0.84-5.20); LYMPHOCYTES PERCENT AUTO 31 % (21-46); MONOCYTES ABSOLUTE AUTO 0.72 K/mm3 (0.16-1.47); MONOCYTES PERCENT AUTO 12 % (4-13); Mean Corpuscular HGB 27.5 pg (26.0-34.0); Mean Corpuscular HGB Conc 32.1 g/dL (31.5-36.5); Mean Corpuscular Volume 86 fL (80-100); Mean Platelet Volume 10.8 fL (9.1-12.4); NEUTROPHILS ABSOLUTE AUTO 3.31 K/mm3 (1.96-9.15); NEUTROPHILS PERCENT AUTO 54 % (41-73); Platelet Count 221 K/mm3 (150-400); RDW Coefficient Variation 15.6 % (11.7-14.2); RDW Standard Deviation 48.7 fL (35.1-46.3); Red Blood Cell Count 4.33 M/mm3 (3.80-5.20); White Blood Cell Count 6.18 K/mm3 (4.00-11.30)
[2024-04-07 22:22] LABS: Albumin, Blood 3.1 g/dL (3.4-5.0); Albumin/Globulin Ratio 0.8 (0.8-1.8); Bilirubin, Total 0.2 mg/dL (0.1-1.0); Bun/Creatinine Ratio 20.2 (12.0-20.0); Creatinine, Blood 0.69 mg/dL (0.40-1.00); Globulin, Blood 3.7 g/dL (2.2-4.0); Potassium, Blood 4.5 mmol/L (3.5-5.5); Total Protein, Blood 6.8 g/dL (6.4-8.2)
[2024-04-07] MEDS ORDERED: EPIPEN0.3 MG/0.1 IM (23:14)
== END 2024-04-07 23:24 | disposition home or self-care (01) ==
LOC: ER 20:39
PROVIDERS: Student in an Organized Health Care Education/Training Program
DX: T78.40XA Allergy, unspecified, initial encounter (principal); F17.210 Nicotine dependence, cigarettes, uncomplicated; Z79.899 Other long term (current) drug therapy; Z91.038 Other insect allergy status
CPT/HCPCS: 80053; 84703; 85025; 96374; 96375; 99285-25; A9270; J1885; J2919

== ENCOUNTER 2024-07-10 11:12 | Emergency (ER) | payer OTHER ==
[~2024-07-10] VITALS: Ht 167.6 cm; Wt 74.8 kg
[~2024-07-10 11:12] MED LIST changes: +EPIPEN0.3 MG/0.1 IM
[2024-07-10 12:10] VITALS: BP 152/97
[2024-07-10] MEDS ORDERED: Methadone HCL 10 MG TAB PO ONE (13:20)
== END 2024-07-10 13:32 | disposition home or self-care (01) ==
LOC: ER 11:12
DX: F11.90 Opioid use, unspecified, uncomplicated (principal); Z76.0 Encounter for issue of repeat prescription; F17.210 Nicotine dependence, cigarettes, uncomplicated
CPT/HCPCS: 99281; A9270

== ENCOUNTER 2024-07-12 10:32 | Emergency (ER) | payer OTHER ==
[~2024-07-12] VITALS: Ht 167.6 cm; Wt 74.8 kg
[2024-07-12] MEDS ORDERED: Methadone HCL 10 MG TAB PO ONE (10:45)
[2024-07-12 10:57] VITALS: BP 139/101
== END 2024-07-12 11:12 | disposition home or self-care (01) ==
LOC: ER 10:32
DX: F11.90 Opioid use, unspecified, uncomplicated (principal); F17.210 Nicotine dependence, cigarettes, uncomplicated; Z76.0 Encounter for issue of repeat prescription; Z79.899 Other long term (current) drug therapy; Z91.038 Other insect allergy status
CPT/HCPCS: 99281; A9270

== ENCOUNTER 2024-07-20 11:46 | Emergency (ER) | payer OTHER ==
[~2024-07-20] VITALS: Ht 170.2 cm; Wt 79.4 kg
[2024-07-20 12:09] VITALS: BP 145/100
[2024-07-20] MEDS ORDERED: Methadone HCL 10 MG TAB PO ONE (12:55)
== END 2024-07-20 13:14 | disposition home or self-care (01) ==
LOC: ER 11:46
DX: F11.90 Opioid use, unspecified, uncomplicated (principal); Z76.0 Encounter for issue of repeat prescription; F17.210 Nicotine dependence, cigarettes, uncomplicated; Z91.038 Other insect allergy status; Z88.8 Allergy status to other drugs, medicaments and biological substances
CPT/HCPCS: 99281; A9270

== ENCOUNTER 2025-03-18 21:02 | Emergency (ER) | payer OTHER ==
[~2025-03-18] VITALS: Ht 167.6 cm; Wt 86.2 kg
[2025-03-18 21:02] VITALS: BP 101/73
[2025-03-18] MEDS ORDERED: Prochlorperazine Edisylate 10 mg Vial IM ONE (21:10)
[2025-03-18] MEDS ORDERED: Ondansetron 8 MG SoluTab SL ONE (21:10)
[2025-03-18] MEDS ORDERED: DiphenhydrAMINE HCl 50 MG/ML 1ML Vial IM ONE (21:10)
[2025-03-18] MEDS ORDERED: ONDA4ODT MM (21:30)
== END 2025-03-18 21:31 | disposition home or self-care (01) ==
LOC: ER 21:02
DX: F11.13 Opioid abuse with withdrawal (principal); F15.10 Other stimulant abuse, uncomplicated; F17.210 Nicotine dependence, cigarettes, uncomplicated; Z79.899 Other long term (current) drug therapy; Z91.038 Other insect allergy status
CPT/HCPCS: 96372; 99284-25; A9270; J0780; J1200